=== PATIENT | male | born 1975 | race Caucasian/White ===

== ENCOUNTER 2019-03-01 12:04 | Observation (INO) | payer BC ==
[~2019-03-01] VITALS: Ht 185.4 cm; Wt 136.1 kg
[~2019-03-01 12:04] MED LIST: ATEN25 PO; BUPR150ERA PO; HYDACE5 PO; LISI5 PO; METF500 PO; OXYACE5T PO; RABE20; RABE20 PO; TIROSINT200 MCG PO; TOBR.3OPSO OP
[2019-03-01] MEDS ORDERED: TRULICITY1.5 MG/0.5 SQ (12:35)
[2019-03-01] MEDS ORDERED: BUPR150ER PO (12:35)
[2019-03-01] MEDS ORDERED: ROSUVASTATIN CA40 MG PO (12:35)
[2019-03-01] MEDS ORDERED: AMLO10 PO (12:35)
[2019-03-01] MEDS ORDERED: PIOG15 PO ×2 (12:35→12:38)
[2019-03-01] MEDS ORDERED: TOUJEO SOL300 UNIT/1 SQ (12:35)
[2019-03-01] MEDS ORDERED: HUMALOG JU100 UNIT/1 SC (12:35)
[2019-03-01] MEDS ORDERED: LOSARTAN-HCTZ1 EAC1 PO (12:36)
[2019-03-01 12:46] LABS: BASOPHILS ABSOLUTE AUTO 0.06 K/mm3 (0.00-0.23); BASOPHILS PERCENT AUTO 1 % (0-2); EOSINOPHILS ABSOLUTE AUTO 0.13 K/mm3 (0.00-0.68); EOSINOPHILS PERCENT AUTO 2 % (0-6); Hematocrit 44.5 % (37.0-53.0); IMMATURE GRAN ABSOLUTE AUTO 0.03 K/mm3 (0.00-0.10); IMMATURE GRAN PERCENT AUTO 1 % (0-1); LYMPHOCYTES ABSOLUTE AUTO 1.97 K/mm3 (0.84-5.20); LYMPHOCYTES PERCENT AUTO 31 % (21-46); MONOCYTES ABSOLUTE AUTO 0.56 K/mm3 (0.16-1.47); MONOCYTES PERCENT AUTO 9 % (4-13); Mean Corpuscular HGB 32.1 pg (26.0-34.0); Mean Corpuscular Volume 89 fL (80-100); Mean Platelet Volume 11.7 fL (9.1-12.4); NEUTROPHILS ABSOLUTE AUTO 3.63 K/mm3 (1.96-9.15); NEUTROPHILS PERCENT AUTO 57 % (41-73); Platelet Count 168 K/mm3 (150-400); RDW Coefficient Variation 12.3 % (11.7-14.2); RDW Standard Deviation 39.9 fL (35.1-46.3); Red Blood Cell Count 4.98 M/mm3 (4.30-5.90); White Blood Cell Count 6.38 K/mm3 (4.00-11.30)
[2019-03-01 13:03] LABS: Alanine Aminotransfer (ALT/SGP 67 U/L (12-78); Albumin, Blood 3.6 g/dL (3.4-5.0); Albumin/Globulin Ratio 0.9 (0.8-1.8); Alk Phos 73 U/L (50-136); Anion Gap 8 mmol/L (6-16); Aspartate Aminotrans (AST/SGOT 53 U/L (12-37); Bilirubin, Total 0.6 mg/dL (0.1-1.0); Blood Urea Nitrogen 15 mg/dL (8-24); Bun/Creatinine Ratio 17.4 (12.0-20.0); CO2, Blood 26 mmol/L (21-32); Chloride, Blood 104 mmol/L (98-108); Creatinine, Blood 0.86 mg/dL (0.60-1.20); Globulin, Blood 3.8 g/dL (2.2-4.0); Glomerular Filtration Rate >60 (60-); Glucose, Blood 157 mg/dL (70-99); Potassium, Blood 3.8 mmol/L (3.5-5.5); Sodium, Blood 138 mmol/L (136-145); Total Protein, Blood 7.4 g/dL (6.4-8.2); Troponin I <0.015 ng/mL (0.000-0.040)
[2019-03-01] MEDS ORDERED: Omeprazole20 M1 PO (14:19)
[2019-03-01] MEDS ORDERED: METO50 PO (14:45)
[2019-03-01] MEDS ORDERED: Humalog100 UNIT/1 SC (18:33)
[2019-03-02 02:37] LABS: Anion Gap 6 mmol/L (6-16); Blood Urea Nitrogen 16 mg/dL (8-24); Bun/Creatinine Ratio 17.2 (12.0-20.0); CO2, Blood 30 mmol/L (21-32); Calcium, Blood 8.5 mg/dL (8.5-10.1); Chloride, Blood 104 mmol/L (98-108); Creatinine, Blood 0.93 mg/dL (0.60-1.20); Glomerular Filtration Rate >60 (60-); Glucose, Blood 279 mg/dL (70-99); Potassium, Blood 3.4 mmol/L (3.5-5.5); Sodium, Blood 140 mmol/L (136-145)
--- NOTE | 2019-03-02 05:27 | NUR ---
SHIFT SUMMARY NO ISSUES NOTED. PT SLEPT T/O SHIFT. PT CURRENTLY SLEEPING. CALL LIGHT IN REACH
--- NOTE | 2019-03-02 12:33 | NUR ---
PATIENT DISCHARGE PATIENT DISCHARGED WITH . DISCUSSED MEDICATION CHANGES. WHILE PATIENT DID NOT HAVE AN ORDER TO FOLLOW UP WITH PCP FROM DR. CONDE. THIS RN ENCOURAGED PATIENT TO LET HIS PCP KNOW OF HIS HOSPITAL ADMISSION. PATIENT DISCUSSED WANTING TO CHANGE PCP AND WILL FOLLOW UP. THIS RN ALSO DISCUSSED ALCOHOL CESSATION. PATIENT IS RECEPTABLE TO THIS CHANGE AND IS INTERESTED IN ATTENDING AA.
== END 2019-03-02 11:37 | disposition home or self-care (01) ==
LOC: ER 12:04 → MEDS 12:05
PROVIDERS: Emergency Medicine; ADMIT Hospitalist
DX: R07.89 Other chest pain (principal); R60.0 Localized edema; E11.9 Type 2 diabetes mellitus without complications; I10 Essential (primary) hypertension; K21.9 Gastro-esophageal reflux disease without esophagitis; G47.30 Sleep apnea, unspecified; E66.01 Morbid (severe) obesity due to excess calories; E78.5 Hyperlipidemia, unspecified; Z79.899 Other long term (current) drug therapy
CPT/HCPCS: 36415; 71045; 80048; 80053; 82947; 83880; 84484; 85025; 93005; 93010; 93306; 99285-25; J1650

== ENCOUNTER → 2023-12-28 | Outpatient (CLI) | payer BC ==
[~2023-12-28] MED LIST changes: +AMLO10 PO; +BUPR150ER PO; +HUMALOG JU100 UNIT/1 SC; +Humalog100 UNIT/1 SC; +LOSARTAN-HCTZ1 EAC1 PO; +METO50 PO; +Omeprazole20 M1 PO; +PIOG15 PO; +ROSUVASTATIN CA40 MG PO; +TOUJEO SOL300 UNIT/1 SQ; +TRULICITY1.5 MG/0.5 SQ
[2023-12-28 10:23] LABS: BASOPHILS ABSOLUTE AUTO 0.03 K/mm3 (0.00-0.23); BASOPHILS PERCENT AUTO 1 % (0-2); EOSINOPHILS ABSOLUTE AUTO 0.06 K/mm3 (0.00-0.68); EOSINOPHILS PERCENT AUTO 2 % (0-6); Hematocrit 45.8 % (37.0-53.0); IMMATURE GRAN PERCENT AUTO 0 % (0-1); LYMPHOCYTES ABSOLUTE AUTO 1.47 K/mm3 (0.84-5.20); LYMPHOCYTES PERCENT AUTO 40 % (21-46); MONOCYTES ABSOLUTE AUTO 0.33 K/mm3 (0.16-1.47); MONOCYTES PERCENT AUTO 9 % (4-13); Mean Corpuscular Volume 89 fL (80-100); Mean Platelet Volume 11.3 fL (9.1-12.4); NEUTROPHILS ABSOLUTE AUTO 1.78 K/mm3 (1.96-9.15); NEUTROPHILS PERCENT AUTO 49 % (41-73); Platelet Count 109 K/mm3 (150-400); RDW Coefficient Variation 11.9 % (11.7-14.2); RDW Standard Deviation 38.8 fL (35.1-46.3); Red Blood Cell Count 5.13 M/mm3 (4.30-5.90); White Blood Cell Count 3.67 K/mm3 (4.00-11.30)
[2023-12-28 11:37] LABS: Hemoglobin 16.7 g/dL (13.5-17.5); Mean Corpuscular HGB Conc 37.4 g/dL (31.5-36.5)
[2023-12-28 11:38] LABS: Mean Corpuscular HGB 33.2 pg (26.0-34.0)
== END ==
LOC: LAB 08:40 → LAB SHORT 08:40
PROVIDERS: Family Medicine
DX: R77.2 Abnormality of alphafetoprotein (principal); R79.89 Other specified abnormal findings of blood chemistry
CPT/HCPCS: 36415; 82105; 85025

== ENCOUNTER 2025-01-28 13:50 | Day surgery (SDC) | payer BC ==
[~2025-01-28 13:50] MED LIST changes: +Atropine Sulfate 0.1 MG/ML 10ML SYR ONE; +Glycopyrrolate 0.2 MG/ML 1MLVIAL ONE; +Lactated Ringer's 1,000 ML IV ONE; +Lidocaine 2% 5 ML SDV ONE; +Lidocaine HCl/Pf 1% 5 ML VIAL ONE; +Methylene Blue 1% 100 MG/10 ML VIAL ONE; +Ondansetron HCl 2 MG / ML 2ML Vial ONE; +ePHEDrine Sulfate 50 MG/ML 1ML Injection ONE
[2025-01-28] MEDS ORDERED: LEVSOD25 (15:03)
[2025-01-28] MEDS ORDERED: EZET10 (15:03)
[2025-01-28] MEDS ORDERED: KLOR-CON M1010 MEQ (15:04)
[2025-01-28] MEDS ORDERED: OZEMPIC0.25 MG/02 (15:04)
[2025-01-28] MEDS ORDERED: PARO20 (15:04)
[2025-01-28] MEDS ORDERED: propofoL 50 ML IV ONE ×2 (15:18→15:34)
[2025-01-28] MEDS ORDERED: Lactated Ringer's 1,000 ML IV ONE (15:30)
[2025-01-28 16:28] VITALS: BP 114/72
== END 2025-01-28 16:27 | disposition home or self-care (01) ==
LOC: ORSCSDS 13:50
PROVIDERS: Internal Medicine Gastroenterology
PROC: 0DB68ZX Excision of Stomach, Via Natural or Artificial Opening Endoscopic, Diagnostic (ICD-10-PCS; principal; 2025-01-28 15:15)
DX: K70.30 Alcoholic cirrhosis of liver without ascites (principal); R74.01 Elevation of levels of liver transaminase levels; K31.7 Polyp of stomach and duodenum; I10 Essential (primary) hypertension; E11.9 Type 2 diabetes mellitus without complications; E78.5 Hyperlipidemia, unspecified; E03.9 Hypothyroidism, unspecified; Z79.899 Other long term (current) drug therapy
CPT/HCPCS: 82947; 88305; 88341; 88342; J0461; J2003; J2405; J2704; J7120; Q9968

== ENCOUNTER 2025-07-03 12:11 | Day surgery (SDC) | payer BC ==
[~2025-07-03] VITALS: Ht 185.4 cm; Wt 111.1 kg
[~2025-07-03 12:11] MED LIST changes: -Atropine Sulfate 0.1 MG/ML 10ML SYR ONE; +EZET10; -Glycopyrrolate 0.2 MG/ML 1MLVIAL ONE; +KLOR-CON M1010 MEQ; +LEVSOD25; -Lactated Ringer's 1,000 ML IV ONE; -Lidocaine 2% 5 ML SDV ONE; -Lidocaine HCl/Pf 1% 5 ML VIAL ONE; -Methylene Blue 1% 100 MG/10 ML VIAL ONE; +OZEMPIC0.25 MG/02; -Ondansetron HCl 2 MG / ML 2ML Vial ONE; +PARO20; -ePHEDrine Sulfate 50 MG/ML 1ML Injection ONE
[2025-07-03] MEDS ORDERED: CHLO25B (12:28)
[2025-07-03] MEDS ORDERED: FARXIGA10 MG (12:28)
[2025-07-03 14:04] VITALS: BP 133/82
== END 2025-07-03 13:47 | disposition home or self-care (01) ==
LOC: ORSCSDS 12:11
PROVIDERS: Internal Medicine Gastroenterology
PROC: 0DBL8ZX Excision of Transverse Colon, Via Natural or Artificial Opening Endoscopic, Diagnostic (ICD-10-PCS; principal; 2025-07-03 13:30)
PROC: 0DBP8ZX Excision of Rectum, Via Natural or Artificial Opening Endoscopic, Diagnostic (ICD-10-PCS; principal; 2025-07-03 13:30)
PROC: 0DBN8ZX Excision of Sigmoid Colon, Via Natural or Artificial Opening Endoscopic, Diagnostic (ICD-10-PCS; principal; 2025-07-03 13:30)
PROC: 0DBH8ZX Excision of Cecum, Via Natural or Artificial Opening Endoscopic, Diagnostic (ICD-10-PCS; principal; 2025-07-03 13:30)
PROC: 0DBM8ZX Excision of Descending Colon, Via Natural or Artificial Opening Endoscopic, Diagnostic (ICD-10-PCS; principal; 2025-07-03 13:30)
DX: K62.5 Hemorrhage of anus and rectum (principal); D12.0 Benign neoplasm of cecum; D12.3 Benign neoplasm of transverse colon; D12.4 Benign neoplasm of descending colon; D12.5 Benign neoplasm of sigmoid colon; D12.8 Benign neoplasm of rectum; I10 Essential (primary) hypertension; K21.9 Gastro-esophageal reflux disease without esophagitis; G47.33 Obstructive sleep apnea (adult) (pediatric); E11.9 Type 2 diabetes mellitus without complications; Z79.85 Long-term (current) use of injectable non-insulin antidiabetic drugs; Z79.4 Long term (current) use of insulin; Z79.899 Other long term (current) drug therapy; E78.5 Hyperlipidemia, unspecified; E03.9 Hypothyroidism, unspecified; E66.9 Obesity, unspecified; Z68.34 Body mass index [BMI] 34.0-34.9, adult; Z87.891 Personal history of nicotine dependence
CPT/HCPCS: 82947; 88305; J2704; J7120